=== PATIENT | female | born 1970 | race Caucasian/White ===

== ENCOUNTER 2018-04-08 20:38 | Emergency (ER) | payer OTHER ==
[2018-04-09] MEDS: IPRATROPIUM (NEB) 0.5 MG/2.5 ML AMP NEB (00:51)
[2018-04-09] MEDS: ALBUTEROL 0.5% (NEB) 2.5 MG/0.5 ML AMP NEB (00:51)
[2018-04-09] MEDS: DEXAMETHASONE 10 MG/ML 1 ML INJ IM (00:57)
== END 2018-04-09 03:50 | disposition home or self-care (01) ==
LOC: FTE 20:38
DX: J40 Bronchitis, not specified as acute or chronic (principal)
CPT/HCPCS: 94664; 96372; 99284-25